=== PATIENT | female | born 1955 | race Caucasian/White ===

== ENCOUNTER 2016-12-25 07:23 | Day surgery (SDC) | payer BC ==
--- NOTE | ~2016-12-25 | EGD ---
EGD REPORT [facility] [address] [id number] NAME: AUDIE L[address] : [birth year] STATUS : REG [facility]#: [id number] AGE: 61 ADM/REG DATE : 12/25/16 MR#: [id number] REPORT SERV DATE: 12/25/16 DICTATED BY: GERALDINE TORRES DATE: 12/25/16 REPORT STATUS : Draft TRANSCRIBED BY: [facility] DATE: 12/25/16 Endoscopy Center Patient Name: Audie Lane Date of : 1955 Attending MD: GERALDINE TORRES MD Procedure Date No Time: 12/25/2016 Procedure: Colonoscopy Indications: Clinically significant diarrhea of unexplained origin, FH of Colonic Polyps - 1st degree relative Medicines: as per anesthesia Complications: No immediate complications. Procedure: After I obtained informed consent, the scope was passed under direct vision. Throughout the procedure, the patient's blood pressure, pulse, and oxygen saturations were monitored continuously. The GIF H190 [id number] was introduced through the mouth, and advanced to the cecum, identified by appendiceal orifice and ileocecal valve. After I obtained informed consent, the scope was passed under direct vision. Throughout the procedure, the patient's blood pressure, pulse, and oxygen saturations were monitored continuously. The colonoscopy was performed without difficulty. The patient tolerated the procedure. The quality of the bowel preparation was fair. Findings: The perianal and digital rectal examinations were normal. Internal hemorrhoids were found during endoscopy and were mild. Four biopsies were obtained in the rectum and in the ascending colon with cold forceps for histology. Impression: - Internal hemorrhoids. - Four biopsies were obtained in the rectum and in the ascending colon. Recommendation: - Await pathology results. - Repeat colonoscopy in 5 years for surveillance. Procedure Code(s): --- Professional --- 83409, Colonoscopy, flexible, proximal to splenic flexure; with biopsy, single or multiple Diagnosis Code(s): --- Professional --- K64.8, Other hemorrhoids R19.7, Diarrhea, unspecified Z83.71, Family history of colonic polyps EGD REPORT [place] [address] [address] NAME: AUDIE [address] : [birth year] STATUS : REG [facility]#: [id number] AGE: 61 ADM/REG DATE : 12/25/16 MR#: [id number] REPORT SERV DATE: 12/25/16 DICTATED BY: GERALDINE TORRES. DATE: 12/25/16 REPORT STATUS : Draft TRANSCRIBED BY: [employer] DATE: 12/25/16 CPT copyright 2013 [employer]. All rights reserved. The codes documented in this report are preliminary and upon associate director regulatory affairs review may be revised to meet current compliance requirements. GERALDINE TORRES MD 12/25/2016 9:56 AM This report has been signed electronically. Number of Addenda: 0 Note Initiated On: 12/25/2016 9:07 AM Scope Withdrawal Time 0 hours 12 minutes 2 seconds [id number] [id number]
--- NOTE | ~2016-12-25 | EGD ---
EGD REPORT [facility] [address] [address] NAME: AUDIE L[address] : 55 STATUS : REG [facility]#: [id number] AGE: 61 ADM/REG DATE : 12/25/16 MR#: [id number] REPORT SERV DATE: 12/25/16 DICTATED BY: GERALDINE TORRES DATE: 12/25/16 REPORT STATUS : Draft [facility]ANSCRIBED [facility]: [facility] DATE: 12/25/16 Endoscopy Center Patient Name: Audie Lane Date of : 1955 Attending MD: GERALDINE TORRES MD Procedure Date No Time: 12/25/2016 Procedure: Upper GI endoscopy Indications: Heartburn, Suspected esophageal reflux Referring MD: KATERIN DIAMOND Medicines: as per anesthesia Complications: No immediate complications. Procedure: Pre-Anesthesia Assessment: - ASA Grade Assessment: III - A patient with severe systemic disease. After obtaining informed consent, the endoscope was passed under direct vision. Throughout the procedure, the patient's blood pressure, pulse, and oxygen saturations were monitored continuously. The PCF [id number] was introduced through the anus and advanced to the third part of duodenum. After obtaining informed consent, the endoscope was passed under direct vision. Throughout the procedure, the patient's blood pressure, pulse, and oxygen saturations were monitored continuously. The upper GI endoscopy was accomplished without difficulty. The patient tolerated the procedure. Findings: The examined esophagus was normal. The entire examined stomach was normal. The cardia and gastric fundus were normal on retroflexion. The examined duodenum was normal. Impression: - Normal esophagus. - Normal stomach. - Normal examined duodenum. Recommendation: - Follow an antireflux regimen. - Continue present medications. Procedure Code(s): --- Professional --- 79191, Esophagogastroduodenoscopy, flexible, transoral; diagnostic, including collection of specimen(s) by brushing or washing, when performed (separate procedure) Diagnosis Code(s): --- Professional --- EGD REPORT [facility] [address] [address] NAME: A[address]IE [address] : [birth year] STATUS : REG [facility]#: [id number] AGE: 61 ADM/REG DATE : 12/25/16 MR#: [id number] REPORT SERV DATE: 12/25/16 DICTATED BY: GERALDINE TORRES. DATE: 12/25/16 REPORT STATUS : Draft TRANSCRIBED BY: [employer] DATE: 12/25/16 R12, Heartburn CPT copyright 2013 [employer]. All rights reserved. The codes documented in this report are preliminary and upon pier hand helper review may be revised to meet current compliance requirements. GERALDINE TORRES MD 12/25/2016 9:30 AM This report has been signed electronically. Number of Addenda: 0 Note Initiated On: 12/25/2016 9:06 AM Scope Withdrawal Time 0 hours 0 minutes 0 seconds [id number] [id number]
[~2016-12-25 07:23] MED LIST: ADDERALL XR20 MG PO; ADDERXR25 PO; AMIT25 PO; AMIT50 PO; ARMOUR THYRO60 MG PO; BONIVA150 MG PO; CALCIUM PO; CALTRA600D PO; CO Q-10100 MG PO; DHE1 PO; EFFEXOR XR150 MG PO; EFFEXXR75 PO; FOSAMAX40 MG PO; INHALER INH; MULTIPLE VIT PO; NEXIUM40 PO; PRILO PO; PROBIOTIC; TOPAMAX100 PO; TOPXL25 PO; VITAMIN B 12; VITAMIN B PO; VITAMIN D31000 UNIT PO; VITC500 PO; VITE PO; ZYRTEC ALLGY10 MG PO; [UNRECOGNIZED DRUG - CODE] NAS; [UNRECOGNIZED DRUG - REMARK]
== END 2016-12-25 23:59 | disposition home or self-care (01) ==
LOC: DMU 07:23
PROVIDERS: Internal Medicine Gastroenterology
PROC: 0DBP8ZX Excision of Rectum, Via Natural or Artificial Opening Endoscopic, Diagnostic (ICD-10-PCS; 2016-12-25)
PROC: 0DJ08ZZ Inspection of Upper Intestinal Tract, Via Natural or Artificial Opening Endoscopic (ICD-10-PCS; principal; 2016-12-25 08:30)
PROC: 0DBK8ZX Excision of Ascending Colon, Via Natural or Artificial Opening Endoscopic, Diagnostic (ICD-10-PCS; 2016-12-25 08:30)
DX: K64.8 Other hemorrhoids (principal); R12 Heartburn; I10 Essential (primary) hypertension; G47.33 Obstructive sleep apnea (adult) (pediatric); E03.9 Hypothyroidism, unspecified; F90.9 Attention-deficit hyperactivity disorder, unspecified type; Z83.71 Family history of colonic polyps; Z88.1 Allergy status to other antibiotic agents; Z88.8 Allergy status to other drugs, medicaments and biological substances; Z88.5 Allergy status to narcotic agent
CPT/HCPCS: 88305